=== PATIENT | male | born 1985 | race Caucasian/White ===

== ENCOUNTER 2022-02-26 00:19 | Day surgery (SDC) | payer OTHER, SELFPAY ==
[2022-02-14 11:52] VITALS: BMI 24.5
[2022-02-26 09:47] VITALS: BP 118/84; PULSE 76; RESP 16; TEMP 36.1; O2SAT 100
[2022-02-26] MEDS: LACTATED RINGERS 1,000 ML 150 ML IV CONT (09:49)
--- NOTE | 2022-02-26 10:24 | WPDHPUPDATE1 ---
History and Physical Update Update Date/Time: 02/26/22 10:24 History and Physical has been reviewed, including an updated exam of the patient. There are NO changes in the patient's condition. Risks, benefits, and alternatives have been discussed and questions answered. Patient agrees to proceed with procedure.
--- NOTE | 2022-02-26 10:40 | WPDANESEPPF ---
Anes - Initial Pre Proc Eval Procedure: Operation Date: 02/26/22 11:00 Proposed Procedures p Colonoscopy - Ferdinand Falcon MD Date/Time: 02/26/22 10:40 Surgeon: Ferdinand Falcon MD Pre Op Diagnosis: Rectal bleeding, constipation Patient Data Age: 36 Gender: M Height: 1.78 m Weight: 73.9 kg Last Vital Signs Temp 97 F L 02/26/22 09:47 Pulse 76 02/26/22 09:47 Resp 16 02/26/22 09:47 BP 118/84 02/26/22 09:47 Pulse Ox 100 02/26/22 09:47 Allergies Allergy/AdvReac Type Severity Reaction Status Date / Time No Known Allergies Allergy Verified 02/26/22 09:45 Home Medications Medication Instructions Recorded Confirmed Type docusate sodium [Stool Softener] 100 mg PO HS 02/14/22 02/26/22 History montelukast 10 mg PO DAILY 02/26/22 02/26/22 History sertraline 200 mg PO DAILY 02/26/22 02/26/22 History Patient hx anesthesia problems: none Family hx anesthesia problems: none Results Review: All pre-operative results and documents have been reviewed as part of the pre-operative evaluation. [facility] Past Medical History Medical History (Updated 01/30/22 @ 16:18 by CÉSAR Sommer) Rectal bleeding Family History Family History Grandparent Carcinoma of colon Family history of Alzheimer's disease Social History Social History (Updated 01/30/22 @ 15:11 by Yasmin Dennison MA) Smoking status: Never smoker Alcohol intake: never Substance use: never Substance use type: does not use Living arrangements: alone Gender identity (if verbalized by the patient): Male Spiritual care concerns: No Anes - Eval Final PreProcedure Day of Procedure 02/26/22 10:40 Patient weight: overweight Heart: regular rate and rhythm Airway: Mallampati scale class II Neurological: alert and oriented Last oral intake: >/= 8 hours ASA classification: II Emergent: no Anesthetic plan: proceed Anesthesia type and monitoring: general GIVS and standard monitoring Results Review: All pre-operative results and documents have been reviewed as part of the pre-operative evaluation. Informed Consent: The patient's anesthetic plan and its attendant risks and benefits were discussed with the patient/family/POA. Questions were solicited and answers provided to the satisfaction of the patient/family/POA.
[2022-02-26 11:32] VITALS: BP 99/70; PULSE 64; RESP 18; O2SAT 100
[2022-02-26 11:42] VITALS: BP 104/73; PULSE 66; RESP 18; O2SAT 100
[2022-02-26 11:52] VITALS: BP 110/76; PULSE 57; RESP 16; O2SAT 100
== END 2022-02-26 11:58 | disposition home or self-care (01) ==
PROVIDERS: PCP Family Medicine; Visit Provider Internal Medicine Gastroenterology
PROC: 0DJD8ZZ Inspection of Lower Intestinal Tract, Via Natural or Artificial Opening Endoscopic (ICD-10-PCS; CPT 45378; principal; 2022-02-26 11:00)
DX: K59.00 Constipation, unspecified (principal); D12.5 Benign neoplasm of sigmoid colon; K92.89 Other specified diseases of the digestive system; K64.8 Other hemorrhoids; H93.25 Central auditory processing disorder; Z80.0 Family history of malignant neoplasm of digestive organs
CPT/HCPCS: 45380; 88305; J2704; J7120

== ENCOUNTER 2024-05-29 11:40 | Emergency (ER) | payer OTHER, SELFPAY ==
[2024-05-29 11:48] VITALS: BP 121/76; PULSE 70; RESP 18; TEMP 36.3; O2SAT 100
--- NOTE | 2024-05-29 11:48 | ED.EAR ---
HPI - Ear Problem General Chief complaint: Ear Stated complaint: ear soreness Time Seen by Provider: 05/29/24 11:48 Source: patient Mode of arrival: ambulatory Limitations: no limitations History of Present Illness HPI Narrative: 38-year-old male presents with complaint of pain to right ear for 9 days. Patient states that pain started after swimming in [place]. For the past 3 days pain has been worse, throbbing. Afebrile. No change to hearing. All systems reviewed and negative except as noted above. Related Data Allergies Allergy/AdvReac Type Severity Reaction Status Date / Time No Known Allergies Allergy Verified 05/29/24 11:49 Review of Systems Review of Systems: CONSTITUTIONAL: Denies fever, chills, or sweats. EYES: Denies visual changes, redness, or discharge. ENT: Denies rhinorrhea, congestion, sore throat . Reports pain to right ear. CARDIOVASCULAR: Denies chest pain, palpitations, or edema. RESPIRATORY: Denies cough or dyspnea. GASTROINTESTINAL: Denies abdominal pain, nausea, vomiting, or diarrhea. GENITOURINARY: Denies dysuria or hematuria. SKIN: Denies rash or itching. MUSCULOSKELETAL: Denies back pain, joint pain, or myalgia. NEUROLOGIC: Denies headache, numbness, or weakness. PSYCHIATRIC: Denies anxiety or depression. All other systems reviewed are negative, except as documented in HPI. [facility] Past Medical History Medical History Rectal bleeding Family History Family History Grandparent Carcinoma of colon Family history of Alzheimer's disease Social History Social History Smoking status: Never smoker Alcohol intake: never Substance use: never Substance use type: does not use Lack of Transportation: No Lack of Food: Never True Current Housing: I Have Housing Concerned About Future Housing: No Difficulty Paying Gas/Electric Bills: No Difficulty Paying for Meds: No Currently Unemployed: No Education: Associate Degree Difficulty w/ Childcare or Family Care: No Living arrangements: alone Occupation/Education: occupation Gender identity (if verbalized by the patient): Male Spiritual care concerns: No Comments At time of signature, agree with nursing past medical, surgical, social and family history. There is no relevant family history pertinent to the presenting complaint. Exam Narrative: GENERAL: This is a well-nourished, well-developed patient, in no apparent distress. HEAD: normocephalic, atraumatic. EYES: PERRL. Sclera clear/white. Vision is grossly intact. EARS: External ears normal, Left ear canal normal. Right ear canal is erythematous and swollen , tender on exam, without drainage. TMs normal without perforation. Hearing grossly intact. NOSE: External nose normal NECK: Neck supple, non-tender without lymphadenopathy, masses or thyromegaly. CARDIOVASCULAR: Regular rate and rhythm without murmurs, gallops, or rubs. RESPIRATORY: Clear to auscultation. Breath sounds equal bilaterally. No wheezes, rales, or rhonchi. SKIN: warm, Dry, intact with no suspicious lesions or rash, good texture and turgor. NEURO: awake, alert, and oriented to person, place and time. There were no obvious focal neurologic abnormalities. EXTREMITIES: No joint tenderness, effusion, or edema noted. Course Course Level of Care: Express Care Visit Vital Signs Vital signs: reviewed Medical Decision Making MDM Narrative Medical decision making narrative: Patient is aware of diagnosis, understands and agrees to treatment plan. Anticipatory guidance given. Patient agrees to follow-up as directed and is aware of reasons to seek care at the emergency department. Portions of this record may have been created with voice recognition software Differential Diagnosis Differential Diagnosis: right o
[2024-05-29 11:50] VITALS: BP 121/76; PULSE 70; RESP 18; TEMP 36.3; O2SAT 100
== END 2024-05-29 12:13 | disposition home or self-care (01) ==
PROVIDERS: Emergency Provider Nurse Practitioner Family; PCP Family Medicine
DX: H60.331 Swimmer's ear, right ear (principal)
CPT/HCPCS: 99213; G0463